=== PATIENT | female | born 1945 | race Caucasian/White ===

== ENCOUNTER → 2016-06-29 | Outpatient (CLI) | payer MEDICARE, OTHER ==
[~2016-06-29] VITALS: Ht 139.7 cm; Wt 46.0 kg
== END | disposition home or self-care (01) ==
LOC: THER.SSS 07:10 → SSS 07:10 → EDSTATUS 09:25 → THER.SSS 09:25 → SSS 15:40
DX: Z01.818 Encounter for other preprocedural examination (principal)